=== PATIENT | female | born 1945 | race Caucasian/White ===

== ENCOUNTER 2016-12-22 23:35 | Observation (INO) ==
[2016-12-23 00:18] LABS: Basophils # 0.1 K/mcL (0.0-0.2); Basophils % 0.6 %; Eosinophils # 0.3 K/mcL (0.0-0.6); Eosinophils % 2.9 %; Hematocrit 45.4 % (35.3-44.9); Hemoglobin 15.4 g/dL (11.5-15.4); Immature Granulocytes % 0.5 % (0-4); Immature Platelets 4.6 % (1.1-6.1); Lymphocytes # 1.6 K/mcL (0.6-4.6); Lymphocytes % 14.1 %; Mean Corpuscular HGB Conc 33.9 g/dL (31.6-35.5); Mean Corpuscular Hemoglobin 30.2 pg (28.0-33.3); Mean Platelet Volume 10.7 fL (9.4-12.4); Monocytes # 0.9 K/mcL (0.0-1.3); Monocytes % 7.7 %; Neutrophils # 8.6 K/mcL (1.6-8.9); Platelet Count 221 K/mcL (140-400); Red Cell Distribution Width 12.1 % (11.5-14.5); Segmented Neutrophils % 74.2 %
[2016-12-23 00:29] LABS: Activated Partial Thrombo Time 31.2 Seconds (26.0-36.0); Calcium 9.9 mg/dL (8.6-10.8); Potassium 3.8 mEq/L (3.5-4.5); Prothrombin Time 10.8 Seconds (9.4-12.1)
[2016-12-23] MEDS ORDERED: Aspirin 81 MG TAB.CHEW PO ONE (00:50)
--- NOTE | 2016-12-23 00:54 | Emergency Department Note ---
Disposition Clinical Impression: Elevated d-dimer Chest pain Qualifiers: Chest pain type: unspecified Qualified Code(s): R07.9 - Chest pain, unspecified Disposition: Admitted As Inpatient Condition: Fair Referrals: Gema Sosa MD [Primary Care Provider] - Forms: ED Satisfaction Letter Time of Disposition: 01:42 Chest Pain HPI - General Chief Complaint: ED Chest Pain Stated Complaint: chest pain Time Seen by Provider: 12/23/16 00:40 Source: patient Limitations: no limitations Vital Signs Reviewed: Yes Nursing Notes Reviewed: Yes - History of Present Illness HPI Narrative: Alert and oriented and nontoxic-appearing 71-year-old female presents for evaluation of substernal and left-sided chest pain that began approximately 2.5 hours prior to her arrival here. She states that the pain is intermittent in nature however it is sharp when it occurs. The pain is made worse with exertion and slightly worse with inspiration. She denies any radiation or migration of this pain. Currently, during the time of my exam, she states that the pain is a 0 however when it strikes, she rates it approximately a 7 out of 10 on a 10 point scale. She denies any associated nausea, vomiting, diaphoresis , shortness of breath, cough, fever, hemoptysis, or palpitations. Pt complaint: chest pain Onset (ago): hour(s) (2.5 hours ago) Duration: intermittent Onset: during rest Pain Location: substernal, left chest Severity: moderate Severity scale (1-10): 7 Quality: sharp Pain Radiation: none Improves with: rest Worsens with: exertion Associated symptoms: Denies: nausea, vomiting, diaphoresis, dyspnea, syncope, palpitations, fever, cough Treatments prior to arrival chest pain: aspirin - Related Data Home Medications Medication Instructions Recorded Confirmed ALPRAZolam [Xanax 0.25 MG Tablet] 0.5 mg PO BID PRN 09/29/15 09/29/15 Aspirin 81 mg PO DAILY 09/29/15 09/29/15 Atorvastatin [Lipitor] 10 mg PO HS 09/29/15 09/29/15 Chlorthalidone 25 mg PO DAILY 09/29/15 09/29/15 Folic Acid 1 mg PO DAILY 09/29/15 09/29/15 Lisinopril [Zestril] 40 mg PO HS 09/29/15 09/29/15 Metoprolol Tartrate [Lopressor] 50 mg PO BID 09/29/15 09/29/15 Allergies Allergy/AdvReac Type Severity Reaction Status Date / Time Sulfa (Sulfonamide Allergy Rash Verified 12/22/16 23:42 Antibiotics) clopidogrel [From Plavix] AdvReac Nausea Verified 12/22/16 23:42 Iodinated Contrast- Oral and AdvReac Nausea Verified 12/22/16 23:42 IV Dye [Iodinated Contrast Media - IV Dye] All systems ED: reviewed and negative except as stated. Constitutional: Denies: fever, chills, weakness, weight change Eyes: Denies: eye pain, eye discharge, vision change ENT ED: Denies: ear pain, throat pain, dental pain, hearing loss, epistaxis, congestion, dysphagia Cardiovascular: Reports: as per HPI, chest pain. Denies: palpitations, dyspnea on exertion, edema, syncope Respiratory: Denies: cough, dyspnea, wheezes, hemoptysis, stridor Gastrointestinal: Denies: abdominal pain, nausea, vomiting, diarrhea, constipation, hematemesis, melena, hematochezia Genitourinary: Denies: dysuria, frequency, hematuria, discharge Musculoskeletal: Denies: back pain, neck pain, arthralgia, myalgia Integumentary: Denies: rash, abrasion, lesions Neurological: Denies: headache, weakness, numbness, paresthesias, confusion, abnormal gait, vertigo Psychiatric: Denies: anxiety, depression, suicidal thoughts, homicidal thoughts , auditory hallucinations, visual hallucinations Endocrine: Denies: fatigue Hematological/Lymphatic: Denies: easy bleeding, easy bruising Allergic/Immunologic: Denies: facial swelling, urticaria Chest Pain PMH - Past Medical History Medical history: Reports: coronary artery disease, GERD, hypertension, myocardial infarction, thyroid disease Surgical history: Reports: cholecystectomy, coronary bypass (CABG) Psychiatric history: Reports: anxiety - Social History Smoking Status: Never smoker Alcohol use: Reports: none Drug use: Reports: none Physical Exam - General Limitations: no limitations General appearance: alert, in no apparent distress - Head Head exam: atraumatic, normocephalic, normal inspection - Eye Eye exam: Present: normal appearance, PERRL, EOMI. Absent: nystagmus - ENT ENT exam: mucous membranes moist - Neck Neck exam: Present: normal inspection, full ROM, trachea midline - Chest Chest inspection: Present: normal inspection, symmetric chest wall rise - Respiratory Respiratory exam: Present: normal lung sounds bilaterally. Absent: respiratory distress, wheezes, stridor, accessory muscle use, prolonged expiratory phase - Cardiovascular Cardiovascular exam: Present: regular rate, normal rhythm, normal heart sounds - Abdominal Exam Abdominal exam: Present: soft, Non-Tender, normal bowel sounds - Extremities Exam Extremities exam: Present: normal inspection, full ROM. Absent: tenderness, pedal edema - Neurological Exam Neurological exam: Present: alert, oriented X3 - Psychiatric Psychiatric exam: Present: normal affect, normal mood - Skin Skin exam: Present: warm, dry, intact, normal color Course Course Narrative: I discussed this patient's case with Dr. Painter. Dr. Painter agrees with admission to the hospital service for ACS rule out and further evaluation of the possibility of a pulmonary embolism. 0135: I have spoken with Dr. Reeves of the hospitalist service. He requests the patient be started on IV heparin for her elevated d-dimer and pleuritic chest pain. He will accept the patient for admission to his service for further observation and evaluation of her chest pain/pulmonary embolism rule out. Vital Signs Temperature 98.2 F 12/22/16 23:36 Pulse Rate 70 12/22/16 23:36 Respiratory Rate 16 12/22/16 23:36 Blood Pressure 205/82 12/22/16 23:36 O2 Sat by Pulse Oximetry 98 12/22/16 23:36 Temperature 98.2 F 12/22/16 23:36 Pulse Rate 70 12/22/16 23:36 Respiratory Rate 16 12/22/16 23:36 Blood Pressure 205/82 12/22/16 23:36 O2 Sat by Pulse Oximetry 98 12/22/16 23:36 Oxygen Delivery Oxygen Delivery Room Air Chest Pain - Medical Records Medical records reviewed: Yes I reviewed the patient's medical records. - Lab Data Lab results reviewed: Yes I reviewed the patient's lab results. Result diagrams: 12/22/16 23:58 12/22/16 23:58 Lab Results 12/22/16 12/22/16 12/22/16 Range/Units 23:58 23:58 23:58 WBC 11.6 H (4.3-11.1) K/mcL RBC 5.10 H (3.82-4.97) M/mcL Hgb 15.4 (11.5-15.4) g/dL Hct 45.4 H (35.3-44.9) % MCV 89.0 (83.0-100.0) fL MCH 30.2 (28.0-33.3) pg MCHC 33.9 (31.6-35.5) g/dL RDW 12.1 (11.5-14.5) % Plt Count 221 (140-400) K/mcL MPV 10.7 (9.4-12.4) fL Immature Gran % 0.5 (0-4) % Seg Neutrophils % 74.2 % Lymphocytes % 14.1 % Monocytes % 7.7 % Eosinophils % 2.9 % Basophils % 0.6 % Neutrophils # 8.6 (1.6-8.9) K/mcL Lymphocytes # 1.6 (0.6-4.6) K/mcL Monocytes # 0.9 (0.0-1.3) K/mcL Eosinophils # 0.3 (0.0-0.6) K/mcL Basophils # 0.1 (0.0-0.2) K/mcL Immature Plt Fraction 4.6 (1.1-6.1) % PT 10.8 (9.4-12.1) Seconds INR 1.0 APTT 31.2 (26.0-36.0) Seconds D-Dimer 712 H (0-500) ng/mLFEU Sodium 138 (136-145) mEq/L Potassium 3.8 (3.5-4.5) mEq/L Chloride 103 (98-109) mEq/L Carbon Dioxide 25 (19-29) mEq/L BUN 20 (7-20) mg/dL Creatinine 1.25 H (0.57-1.11) mg/dL Est GFR ( Amer) 51 L (> 60) Est GFR (Non-Af Amer) 42 L (> 60) BUN/Creatinine Ratio 16 (6-26) Glucose 130 H (70-99) mg/dL Calculated Osmolality 290 (280-300) Calcium 9.9 (8.6-10.8) mg/dL Troponin I (0-0.03) ng/mL 12/22/16 Range/Units 23:58 WBC (4.3-11.1) K/mcL RBC (3.82-4.97) M/mcL Hgb (11.5-15.4) g/dL Hct (35.3-44.9) % MCV (83.0-100.0) fL MCH (28.0-33.3) pg MCHC (31.6-35.5) g/dL RDW (11.5-14.5) % Plt Count (140-400) K/mcL MPV (9.4-12.4) fL Immature Gran % (0-4) % Seg Neutrophils % % Lymphocytes % % Monocytes % % Eosinophils % % Basophils % % Neutrophils # (1.6-8.9) K/mcL Lymphocytes # (0.6-4.6) K/mcL Monocytes # (0.0-1.3) K/mcL Eosinophils # (0.0-0.6) K/mcL Basophils # (0.0-0.2) K/mcL Immature Plt Fraction (1.1-6.1) % PT (9.4-12.1) Seconds INR APTT (26.0-36.0) Seconds D-Dimer (0-500) ng/mLFEU Sodium (136-145) mEq/L Potassium (3.5-4.5) mEq/L Chloride (98-109) mEq/L Carbon Dioxide (19-29) mEq/L BUN (7-20) mg/dL Creatinine (0.57-1.11) mg/dL Est GFR ( Amer) (> 60) Est GFR (Non-Af Amer) (> 60) BUN/Creatinine Ratio (6-26) Glucose (70-99) mg/dL Calculated Osmolality (280-300) Calcium (8.6-10.8) mg/dL Troponin I 0.00 (0-0.03) ng/mL - Radiology Data Radiology results reviewed: Yes I reviewed the patient's radiology results. - EKG Data EKG attestation: Yes I reviewed and interpreted this EKG. EKG results narrative: EKG reviewed by Dr. Painter as well. EKG shows a sinus rhythm with sinus arrhythmia at a rate of 63 bpm. [place] interval 154, QRS duration 86, QT/QTc interval 407/414. No ectopy noted. No STEMI. Heart Score - Score History: Highly Suspicious EKG: Non Specific repolarisation Disturbance Age: Greater than 65 Risk Factors: Equal/Greater than 3 risk factor or history of atherosclerotic disease Troponin: Less than normal limit HEART Score Total: 7 Attestation Statement - Attestation Attestation: I, Hermelindo Painter MD, personally evaluated this patient and discussed their management with the midlevel provicer, PAC/SPD TECH. I reviewed the midlevel provider 's note and agree with the documented findings, medical decision making, and plan of care. 71-year-old female with history of coronary artery disease and CABG presents complaining of some left mid chest pain which started about 9:30 this evening. No radiation of the pain. No shortness of breath associated with the pain. No diaphoresis. No nausea or vomiting. No cough or fever. Patient describes the pain as sharp. On examination patient is a well-developed well-nourished elderly female in no acute distress. She is alert and oriented 3. There is no cyanosis or diaphoresis. Chest is nontender to palpation. Breath sounds are clear and equal bilaterally. Heart regular rate and rhythm. Abdomen soft and nontender with normal bowel sounds. Labs reviewed. No acute changes on EKG. Elevated d-dimer noted however patient is very allergic to IV contrast. She will be started on heparin and await possible VQ scan in the morning. The hospitalist, Dr. Reeves, was consulted and accepted admission of the patient.
[2016-12-23] MEDS ORDERED: 0.9 % Sodium Chloride 1,000 ML IVC ONE (01:22)
[2016-12-23] MEDS ORDERED: 0.9 % Sodium Chloride 1,000 ML ONE (01:35)
[2016-12-23] MEDS ORDERED: *HR* Heparin 5,000 UNIT/ML VIAL IVP ONE (01:38)
[2016-12-23] MEDS ORDERED: *HR* Heparin 5,000 UNIT/ML VIAL IVP PRN ×2 (01:38)
[2016-12-23] MEDS ORDERED: Heparin 25,000 UNIT/500 ML D5W 25,000 UNIT/500 ML MLS IVC SCH (01:45)
[2016-12-23 02:12] LABS: Hematocrit 44.6 % (35.3-44.9); Hemoglobin 15.1 g/dL (11.5-15.4); Mean Corpuscular HGB Conc 33.9 g/dL (31.6-35.5); Mean Corpuscular Volume 88.5 fL (83.0-100.0); Mean Platelet Volume 10.8 fL (9.4-12.4); Platelet Count 215 K/mcL (140-400); Red Blood Count 5.04 M/mcL (3.82-4.97); Red Cell Distribution Width 12.3 % (11.5-14.5)
[2016-12-23 02:18] LABS: Prothrombin Time 10.5 Seconds (9.4-12.1)
[2016-12-23 02:21] LABS: Activated Partial Thrombo Time 29.7 Seconds (26.0-36.0)
[2016-12-23 09:12] LABS: Activated Partial Thrombo Time > 360.0 Seconds (26.0-36.0)
[2016-12-23] MEDS ORDERED: Acetaminophen 325 MG TABLET PO PRN (09:19)
[2016-12-23] MEDS ORDERED: Naloxone 0.4 MG/ML INJ IVP PRN (09:19)
[2016-12-23] MEDS ORDERED: ALPRAZolam 0.25 MG TABLET PO PRN (09:20)
--- NOTE | 2016-12-23 09:26 | Internal Med History&Physical ---
Date of Encounter: 12/23/16 Time of Encounter: 08:40 Assessment and Plan (1) Chest pain Current visit: Yes Status: Acute I do not suspect this represents acute ischemic heart disease. Her pain is atypical. EKG is negative. Troponin is negative. There may be a musculoskeletal component. I will however further workup potential for pulmonary embolism giving her elevated d-dimer without obvious explanation. Before meals discussion above, will continue on a heparin drip for now, and perform a VQ scan. Qualifiers: Chest pain type: unspecified Qualified Code(s): R07.9 - Chest pain, unspecified (2) Elevated d-dimer Current visit: Yes Status: Acute See discussion above (3) Hypertension Current visit: Yes Status: Acute Continue home medications, with the exception of her diuretic and MACRELO inhibitor today as she is mildly renally insufficient. Will give IV fluids. If V/Q is nonconclusive she may ultimately need a CAT scan. Qualifiers: Hypertension type: essential hypertension Qualified Code(s): I10 - Essential (primary) hypertension (4) Coronary artery disease Current visit: Yes Status: Acute Table, no angina Qualifiers: Coronary Disease-Associated Artery/Lesion type: bypass graft [place] vs. transplanted heart: [place] heart Associated angina: without angina Qualified Code(s): I25.810 - Atherosclerosis of coronary artery bypass graft(s) without angina pectoris (5) Hypothyroidism Current visit: Yes Status: Acute I do not see that she is on Synthroid. I will check a TSH. Qualifiers: Hypothyroidism type: unspecified Qualified Code(s): E03.9 - Hypothyroidism , unspecified (6) Acute kidney injury Current visit: Yes Status: Acute Unclear if she does have a component of chronic kidney disease. For now we will use IV fluids, hold potentially nephrotoxic agents and monitor Internal Medicine - H&P: HPI Admitted From: Emergency Dept Plans for Post Hospital Care: Home History of present illness: Ms. Martin is a 71 year old female with a past medical history of coronary disease status post [place] 7 years ago status post re-vessel CABG, hypertension, GERD, hypothyroidism. She states she has been in good health of late, but last night began experiencing some chest pain. The pain is described as left-sided anterior chest wall, sharp lasting anywhere from a few seconds to a few minutes. Often provoked with activity such as movement, sometimes comes on at rest. She denied any nausea or vomiting. No shortness of breath. No cough. No recent illnesses. No fevers or chills. No trauma to her chest wall. No recent travel. No history of DVT or PE. Due to the persistence of this pain patient presented to the emergency room for evaluation. On arrival she was hemodynamically stable satting 96% on room air. Labs were essentially unremarkable with the exception of a BUN/creatinine of 20 over 1.25.. A d- dimer was elevated at 712. Troponins were negative. EKG showed normal sinus rhythm without any acute ischemic changes. Chest x-ray was negative. Patient was placed on a heparin drip and admitted for evaluation for possible pulmonary embolism. Patient states that her daughter had a contrast allergy and had severe anaphylaxis. She herself has never had IV contrast as far she can tell. She is listed in the computer as having an IV contrast allergy. I discussed this with the radiologist and we do believe a CT scan would be safe in this patient, but after further discussion with the patient and her comfort level, we will perform a VQ scan. She currently is laying in bed pain-free, but she states if she were to get up and move the pain would probably come back. He has no other complaints at this time. Past Med Surg Social Fam HX - Past Medical History Medical history: coronary artery disease, GERD, hypertension, myocardial infarction, thyroid disease Psychiatric history: anxiety - Past Surgical History Surgical History: cholecystectomy, coronary bypass (CABG) - Social History Smoking Status: Never smoker Smokeless Tobacco Status: No Alcohol use: none Drug use: none Occupational status: retired Current living situation: Home Activity Level: Independent ambulation Recent Out of Country Travel Within the Last 8 Weeks: No Exposure or Possible Exposure to Illness During Travel: No - Family History Father Living Status: Age at : 42 Cause of : [place] Hx Family Cardiac Disorders: Yes ([place]) Hx Family Respiratory Disorders: No Hx Family Cancer: No Hx Family GI Disorders: No Hx Family Genitourinary Disorders: No Hx Family Endocrine Disorder: No Hx Family Musculoskeletal Disorders: No Hx Family Neuromuscular Disorders: No Hx Family Neurologic Disorders: No Hx Family HEENT Disorders: No Hx Family Autoimmune Disorders: No Hx Family Reproductive Disorders: No Hx Family Psychosocial Disorders: No Hx Family Medical Disorders: No Brother Living Status: Still Living Hx Family Cardiac Disorders: Yes ([place], Bypass) Hx Family Respiratory Disorders: No Hx Family Cancer: No Hx Family GI Disorders: No Hx Family Genitourinary Disorders: No Hx Family Endocrine Disorder: No Hx Family Musculoskeletal Disorders: No Hx Family Neuromuscular Disorders: No Hx Family Neurologic Disorders: No Hx Family HEENT Disorders: No Hx Family Autoimmune Disorders: No Hx Family Reproductive Disorders: No Hx Family Psychosocial Disorders: No Hx Family Medical Disorders: No - Additional Family History Additional family history: Family history reviewed and noncontributory. No family history of DVT. Internal Medicine - H&P: Meds ALPRAZolam [Xanax 0.25 MG Tablet] 0.5 mg PO BID PRN 09/29/15 [History] Aspirin 81 mg PO DAILY 09/29/15 [History] Atorvastatin [Lipitor] 10 mg PO HS 09/29/15 [History] Chlorthalidone 25 mg PO DAILY 09/29/15 [History] Folic Acid 1 mg PO DAILY 09/29/15 [History] Lisinopril [Zestril] 40 mg PO HS 09/29/15 [History] Metoprolol Tartrate [Lopressor] 50 mg PO BID 09/29/15 [History] 3 Allergy/AdvReac Type Severity Reaction Status Date / Time Sulfa (Sulfonamide Allergy Rash Verified 12/22/16 23:42 Antibiotics) clopidogrel [From Plavix] AdvReac Nausea Verified 12/22/16 23:42 Iodinated Contrast- Oral and AdvReac Nausea Verified 12/22/16 23:42 IV Dye [Iodinated Contrast Media - IV Dye] All Systems PM: A 10-system review of systems was performed and is negative for pertinent findings except as documented above in the HPI. - Constitutional Vitals: Temp Pulse Resp BP Pulse Ox 98.0 F 71 16 150/74 96 12/23/16 07:03 12/23/16 07:03 12/23/16 07:03 12/23/16 07:03 12/23/16 07:03 - Head Head exam: Present: atraumatic, normocephalic - Eye Eye exam: Present: PERRL, conjuntiva pink, sclera anicteric Pupils: Present: PERRL - Neck Neck exam general surgery: Present: supple, trachea midline. Absent: lymphadenopathy - Respiratory Respiratory exam: Present: CTAB. Absent: accessory muscle use, rales, rhonchi, wheezes - Cardiovascular Cardiovascular exam: Present: RRR, +S1, +S2. Absent: diastolic murmur, gallop, rubs, systolic murmur - GI/Abdominal GI/Abdominal exam: Present: normal bowel sounds, soft, no peritoneal signs. Absent: distended, tenderness - Extremities Exam Extremities exam: Present: warm, radial pulses palpable and symmetrical. Absent : calf tenderness, cyanotic, pedal edema - Neurological Exam Neurological exam: Present: CN II-XII intact, oriented X3, no focal deficits. Absent: pronater drift, facial droop, speech deficit - Skin Skin exam: Present: dry, intact Internal Med - H&P Results - Labs CBC & Chem 7: 12/23/16 02:04 12/22/16 23:58
[2016-12-23] MEDS: 0.9 % Sodium Chloride 1,000 ML IVC SCH ×2 (10:00→21:17)
[2016-12-23 10:14] LABS: Heparin anti-factor XA UFH 1.29 IU/mL (0.30-0.70)
[2016-12-23 15:37] LABS: Activated Partial Thrombo Time 135.2 Seconds (26.0-36.0)
[2016-12-23 15:44] LABS: Heparin anti-factor XA UFH 0.68 IU/mL (0.30-0.70)
--- NOTE | 2016-12-23 18:32 | Event Note ---
Date of Encounter: 12/23/16 Time of Encounter: 18:30 KarthikQ neg. Beto العلي. Stress test in am.
[2016-12-24 04:07] LABS: Basophils # 0.1 K/mcL (0.0-0.2); Basophils % 0.8 %; Eosinophils # 0.4 K/mcL (0.0-0.6); Eosinophils % 4.4 %; Hematocrit 38.6 % (35.3-44.9); Immature Granulocytes % 0.3 % (0-4); Lymphocytes # 1.7 K/mcL (0.6-4.6); Lymphocytes % 21.5 %; Mean Corpuscular HGB Conc 33.7 g/dL (31.6-35.5); Mean Corpuscular Hemoglobin 30.2 pg (28.0-33.3); Mean Corpuscular Volume 89.8 fL (83.0-100.0); Mean Platelet Volume 11.1 fL (9.4-12.4); Monocytes # 0.6 K/mcL (0.0-1.3); Monocytes % 7.8 %; Neutrophils # 5.1 K/mcL (1.6-8.9); Platelet Count 168 K/mcL (140-400); Red Cell Distribution Width 12.6 % (11.5-14.5); Segmented Neutrophils % 65.2 %
[2016-12-24 04:28] LABS: BUN/Creatinine Ratio 15 (6-26); Blood Urea Nitrogen 15 mg/dL (7-20); Calcium 8.6 mg/dL (8.6-10.8); Carbon Dioxide 26 mEq/L (19-29); Chloride 108 mEq/L (98-109); Glucose 108 mg/dL (70-99); Osmolality,Calculated 291 (280-300); Sodium 140 mEq/L (136-145); eGFR For African Americans > 60 (> 60); eGFR For Non-African Americans 55 (> 60)
[2016-12-24] MEDS: Folic Acid 1 MG TABLET PO SCH (08:18)
[2016-12-24] MEDS: Aspirin 81 MG TAB.CHEW PO SCH (08:18)
--- NOTE | 2016-12-24 16:54 | Internal Med Progress Note ---
Date of Encounter: 12/24/16 Time of Encounter: 13:40 - Assessment and plan (1) Chest pain Current Visit: Yes Status: Acute Assessment and plan: Patient has prior medical history of coronary artery disease, [place] with CABG. Patient reports left-sided anterior chest wall pain, sharp lasting anywhere from a few seconds to a few minutes. Patient states that it increases with activity, although sometimes it occurs at rest. She denies nausea, vomiting, no shortness of breath, no cough, no fevers or chills, and no trauma. Patient had an elevated d-dimer, however VQ scan showed low probability for PE. Chest x -ray showed possibility of pneumonia, she has no indication at this time for antibiotics. We will continue to closely monitor patient in vital signs. Troponins are negative 2. Pain is not reproducible with movement or deep inspiration, nor with palpation. Continue dental service technician labs Monitor vital signs Stress test in the morning. Qualifiers: Chest pain type: unspecified Qualified Code(s): R07.9 - Chest pain, unspecified (2) Elevated d-dimer Current Visit: Yes Status: Acute Assessment and plan: VQ scan showed low probability for PE. (3) Hypertension Current Visit: Yes Status: Acute Assessment and plan: Patient has been mildly hypertensive this afternoon, home medications were restarted. We will continue to monitor vital signs. Hydralazine 10 mg IV when necessary systolic greater than 180 and diastolic greater than 100. Qualifiers: Hypertension type: essential hypertension Qualified Code(s): I10 - Essential (primary) hypertension (4) Coronary artery disease Current Visit: Yes Status: Acute Assessment and plan: History of CABG. Continue Lipitor, ASA and BB Qualifiers: Coronary Disease-Associated Artery/Lesion type: bypass graft [place] vs. transplanted heart: [place] heart Associated angina: without angina Qualified Code(s): I25.810 - Atherosclerosis of coronary artery bypass graft(s) without angina pectoris (5) Hypothyroidism Current Visit: Yes Status: Acute Assessment and plan: Continue home medication and follow up with PCP for medication adjustments. TSH elevated. Qualifiers: Hypothyroidism type: unspecified Qualified Code(s): E03.9 - Hypothyroidism , unspecified (6) Acute kidney injury Current Visit: Yes Status: Resolved Assessment and plan: Most likely due to dehydration. Continue to monitor labs and avoid nephrotoxins. (7) DVT prophylaxis Current Visit: Yes Status: Acute Assessment and plan: MELO matute. Pt is ambulatory. - Time Spent With Patient less than 15 minutes - Subjective Interval history: patient was seen and assessed at 13 40. Family members at bedside. She denies any chest pain since last night at dinnertime. Onset of chest pain was Sunday night. Chest pain was on the left, she says it was severe and sharp, there is no radiation, no shortness of breath, no nausea or vomiting or diaphoresis. Patient reports recent illness one week ago with abdominal pain and diarrhea for 4-5 days. She denies any cough or fever at this time. The pain is not reproducible with movement or palpation or deep inspiration. Patient was unable to have her stress test this morning due to VQ scan in within 48 hours of stress test. Stress test will be in the morning. - Constitutional Vitals: Temp Pulse Resp BP Pulse Ox 97.9 F 57 16 144/77 96 12/24/16 16:09 12/24/16 16:09 12/24/16 16:09 12/24/16 16:41 12/24/16 16:09 General appearance: Present: cooperative, A&O X 3, pleasant, no acute distress, answers questions appropriately - Head Head exam: Present: atraumatic, normal inspection, normocephalic - Eye Eye exam: Present: normal appearance, conjuntiva pink, sclera anicteric - Neck Neck exam general surgery: Present: supple, trachea midline. Absent: lymphadenopathy - Respiratory Respiratory exam: Present: CTAB. Absent: accessory muscle use, rales, rhonchi, wheezes - Cardiovascular Cardiovascular exam: Present: RRR, +S1, +S2. Absent: diastolic murmur, gallop, rubs, systolic murmur - GI/Abdominal GI/Abdominal exam: Present: normal bowel sounds, soft. Absent: distended, tenderness - Extremities Exam Extremities exam: Present: normal capillary refill, normal inspection, warm, radial pulses palpable and symmetrical. Absent: calf tenderness, cyanotic, pedal edema, tenderness - Neurological Exam Neurological exam: Present: alert, oriented X3, no focal deficits, pronater drift. Absent: facial droop, speech deficit - Skin Skin exam: Present: dry, intact, normal color, warm. Absent: rash Internal Medicine: Result - Labs CBC & Chem 7: 12/24/16 03:09 12/24/16 03:09 Labs: Short CBC 12/24/16 Range/Units 03:09 WBC 7.9 (4.3-11.1) K/mcL Hgb 13.0 D (11.5-15.4) g/dL Hct 38.6 (35.3-44.9) % Plt Count 168 (140-400) K/mcL Neutrophils # 5.1 (1.6-8.9) K/mcL BMP 12/24/16 03:09 Sodium 140 Potassium 4.0 Chloride 108 Carbon Dioxide 26 BUN 15 Creatinine 0.99 Glucose 108 H Calcium 8.6 Cardiac Enzymes 12/24/16 Range/Units 06:12 Troponin I 0.01 (0-0.03) ng/mL - ABG Interpretation ABG results: PT/INR, D-dimer PT 10.5 Seconds (9.4-12.1) 12/23/16 02:04 D-Dimer 712 ng/mLFEU (0-500) H 12/22/16 23:58 Consult Discharge Plan - Plan Referrals: Gema Sosa MD [Primary Care Provider] -
[2016-12-24] MEDS: 0.9 % Sodium Chloride 1,000 ML IVC SCH (17:31)
[2016-12-24] MEDS: Cholestyramine 4 GM POWD.PACK PO SCH (17:40)
[2016-12-24] MEDS ORDERED: Lisinopril 20 MG TABLET PO SCH (21:00)
[2016-12-25 05:25] LABS: BUN/Creatinine Ratio 16 (6-26); Blood Urea Nitrogen 15 mg/dL (7-20); Calcium 8.6 mg/dL (8.6-10.8); Carbon Dioxide 25 mEq/L (19-29); Chloride 110 mEq/L (98-109); Glucose 119 mg/dL (70-99); Osmolality,Calculated 292 (280-300); Potassium 3.9 mEq/L (3.5-4.5); Sodium 140 mEq/L (136-145); eGFR For African Americans > 60 (> 60); eGFR For Non-African Americans 57 (> 60)
[2016-12-25] MEDS: Cholestyramine 4 GM POWD.PACK PO SCH ×2 (10:15→13:47)
[2016-12-25] MEDS: Folic Acid 1 MG TABLET PO SCH (10:28)
[2016-12-25] MEDS: Aspirin 81 MG TAB.CHEW PO SCH (10:28)
[2016-12-25 15:11] VITALS: BP 108/58
--- NOTE | 2016-12-25 17:15 | Discharge Summary ---
Date of Encounter: 12/25/16 Time of Encounter: 13:40 - Discharge Diagnosis (1) Chest pain Priority: Primary Status: Acute Comments: Patient denies chest pain since the night of admission. Patient would not be able to have her stress test until at least tomorrow due to the fact that she had a nuclear medicine scan and her levels remain too high to inject her for her stress test. Patient's chest x-ray showed increased density is indeterminate and may represent atelectasis or pneumonia. EKG was normal sinus without any acute ischemic changes. Patient had an elevated d-dimer and VQ scan showed low probability for PE. Patient has had mildly elevated white count throughout visit. She has had no fever or tachycardia, she denies productive cough or back pain. Pain is not reproducible at all with inspiration , movement or palpation. At this point there is no indication for treatment with antibiotics. She has not had any chest pain and she does not want to stay for another day for stress test. She will follow up with cardiology outpatient. She is to return to the emergency department immediately if chest pain begins again. Qualifiers: Chest pain type: unspecified Qualified Code(s): R07.9 - Chest pain, unspecified (2) Elevated d-dimer Priority: Secondary Status: Acute Comments: Elevated on admission, VQ scan was low probability for PE. She has no lower extremity edema, swelling, pain, claudication. (3) Hypertension Priority: Secondary Status: Chronic Comments: Chronic. Blood pressure is well controlled in inpatient setting. Continue home medications. Qualifiers: Hypertension type: essential hypertension Qualified Code(s): I10 - Essential (primary) hypertension (4) Coronary artery disease Priority: Secondary Status: Acute Comments: Patient denies chest pain since admission. Prior history of CABG. Continue beta linda, lisinopril, chlorthalidone, Lipitor and aspirin. Follow up with cardiology. Qualifiers: Coronary Disease-Associated Artery/Lesion type: bypass graft [place] vs. transplanted heart: [place] heart Associated angina: without angina Qualified Code(s): I25.810 - Atherosclerosis of coronary artery bypass graft(s) without angina pectoris (5) Hypothyroidism Priority: Secondary Status: Acute Comments: TSH is slightly elevated. Patient should follow up with primary care provider for monitoring and medication changes. Qualifiers: Hypothyroidism type: unspecified Qualified Code(s): E03.9 - Hypothyroidism , unspecified (6) Acute kidney injury Priority: Secondary Status: Acute Comments: Patient denies any history of kidney disease. Creatinine was elevated BUN due to his decreased on admission. Labs returned within normal limits. Patient should encourage fluid intake and monitoring hydration status and uses NSAIDs. (7) DVT prophylaxis Priority: Secondary Status: Acute Comments: Patient was ambulatory. MELO matute. - Discharge Medications Home Medications: ALPRAZolam [Xanax 0.25 MG Tablet] 0.5 mg PO BID PRN 09/29/15 [History] Aspirin 81 mg PO DAILY 09/29/15 [History] Atorvastatin [Lipitor] 10 mg PO HS 09/29/15 [History] Chlorthalidone 25 mg PO DAILY 09/29/15 [History] Folic Acid 1 mg PO DAILY 09/29/15 [History] Lisinopril [Zestril] 40 mg PO HS 09/29/15 [History] Metoprolol Tartrate [Lopressor] 50 mg PO BID 09/29/15 [History] Cholestyramine [Cholestyramine] 4 gm PO TIDWM 12/24/16 [History] Cyclobenzaprine HCl 5 mg PO BID PRN 12/24/16 [History] Levothyroxine Sodium 75 mcg PO DAILY 12/24/16 [History] Allergies/Adverse Reactions: 3 Allergy/AdvReac Type Severity Reaction Status Date / Time Sulfa (Sulfonamide Allergy Rash Verified 12/24/16 11:05 Antibiotics) clopidogrel [From Plavix] AdvReac Nausea Verified 12/24/16 11:05 Iodinated Contrast- Oral and AdvReac Nausea Verified 12/24/16 11:05 IV Dye [Iodinated Contrast Media - IV Dye] Procedures/tests Complete & Pending: Procedures Performed prior 72 hours Category Date Time Status VQ Scan [NM pul vent and perfuse] [NM] Stat Exams 12/23/16 09:21 Completed SP pharm nuclear stress Routine Y 12/23/16 18:29 Ordered Date of admission: 12/23/16 02:08 Primary care physician: Gema Tanner Discharging clinician: Trista Mejia Anticipated date of discharge: 12/25/16 - Patient Status Disposition: Home, Self-Care Condition: Good Functional capacity at discharge: independent ambulation Overall status at discharge: patient is back to baseline - Discharge Instructions Follow Up With: Gema Sosa MD [Primary Care Provider] - Additional Instructions: Follow-up with her primary care provider in the next 7-10 days for a follow-up visit. Follow-up with cardiology in the next week for a follow-up visit. If your chest pain returns, return to the emergency department immediately. Return to the emergency department for any other problems that you may experience. Resume your normal home medications and resume your normal activities as tolerated. - Diet and Activity Activity: increase activity as tolerated Diet: low fat, low cholesterol Hospital course: Ms. Martin is a 71 year old female with prior medical history of coronary artery disease with [place] and CABG, hypertension, GERD, hypothyroidism. Patient reports prior to arrival she began having chest pain, left-sided anterior chest wall, sharp lasting anywhere from a few seconds to a few minutes. Often provoked with movement, sometimes it began at rest. She denied any nausea or vomiting or shortness of breath, no cough or recent illness, no fevers or chills. No trauma to her chest wall no recent travel or history of DVT or PE. Since troponins have been negative, d-dimer was elevated but VQ scan was low probability for PE. She has no leg pain, swelling, redness, claudication, decreased pulses, or pain. She denies recent travel. EKG was normal sinus without any ST elevation or changes. Patient does not require supplemental oxygen, labs are essentially unremarkable other than initially elevated creatinine and decreased GFR. This has since resolved. She has been afebrile without tachycardia, her blood pressures been well controlled. Physical exam is unremarkable. She has not had any chest pain since prior to arrival. Due to her VQ scan, she was unable to get the stress test for the last 2 days. She will follow up outpatient with cardiology. She is already a patient of Dr. Rojo and will call the office for appointment. Patient is encouraged to return immediately if chest pain began where she has any other problems or concerns. Starting Imdur with her, she said that she did not want to do that and wanted to see cardiology instead. Patient's TSH is slightly elevated, she may well need to follow-up with primary care for medication adjustment and follow-up labs. Labs and vitals are stable within normal limits. Patient is ready for discharge. - Time Spent with Patient Total time spent providing and/or coordinating discharge services: Less than 30 minutes - Constitutional Vitals: Temp Pulse Resp BP Pulse Ox 98.6 F 51 16 108/58 96 12/25/16 15:12/25/16 15:12/25/16 15:12/25/16 15:12/25/16 15:09 General appearance: Present: cooperative, A&O X 3, pleasant, no acute distress, answers questions appropriately - Head Head exam: Present: atraumatic, normal inspection, normocephalic - Eye Eye exam: Present: normal appearance, conjuntiva pink, sclera anicteric - Neck Neck exam general surgery: Present: normal inspection, supple, trachea midline. Absent: lymphadenopathy, tenderness - Respiratory Respiratory exam: Present: CTAB. Absent: accessory muscle use, chest wall tenderness, rales, rhonchi, wheezes - Cardiovascular Cardiovascular exam: Present: RRR, +S1, +S2. Absent: diastolic murmur, gallop, rubs, systolic murmur - GI/Abdominal GI/Abdominal exam: Present: normal bowel sounds, soft. Absent: distended, guarding, hepatomegaly, tenderness - Extremities Exam Extremities exam: Present: normal inspection, warm, radial pulses palpable and symmetrical. Absent: calf tenderness, cyanotic, pedal edema, tenderness - Neurological Exam Neurological exam: Present: alert, oriented X3, no focal deficits. Absent: motor sensory deficit, facial droop, speech deficit - Skin Skin exam: Present: dry, intact, normal color, warm. Absent: rash
--- NOTE | 2016-12-25 21:40 | Electrocardiograph Report ---
[address] [place], [place] [address] Test Date: 2016-12-22 Pat Name: Rosamaria Martin Department: 102 Room: 3B48 Gender: F Retail Business Development Manager: : 1945 Requested By: Hermelindo Painter Order Number: [id number] Reading MD: Partha Steward MD Measurements Intervals Britton Rate: 63 P: -8 NC: 154 QRS: -18 QRSD: 86 T: 98 QT: 407 QTc: 414 Interpretive Statements SINUS RHYTHM WITH SINUS ARRHYTHMIA LOW QRS VOLTAGE IN PRECORDIAL LEADS ANTEROSEPTAL MYOCARDIAL INFARCTION LATERAL ISCHEMIA BASELINE ARTIFACT Electronically Signed On 12-25-2016 21:38:45 EDT by Partha Steward MD
== END 2016-12-25 18:45 | disposition home or self-care (01) ==
LOC: EMEROO 23:35 → 3BNU 23:35
PROVIDERS: ADMIT Internal Medicine; ATTEND Registered Nurse